=== PATIENT | male | born 1955 | race Caucasian/White ===

== ENCOUNTER 2018-03-02 21:27 | Outpatient (REF) | payer BC, SELFPAY ==
[2018-03-02 21:54] LABS: Anion Gap 6.4 mmol/L (3-11); BUN 25 mg/dL (7-18); CO2 30.6 mmol/L (21.0-32.0); CREATININE 1.15 mg/dL (0.70-1.30); Calcium 8.6 mg/dL (8.5-10.1); Chloride 105 mmol/L (98-107); Cholesterol 181 mg/dL (50-200); Glucose 90 mg/dL (70-100); HDL Cholesterol 46 mg/dL (40-60); LDL CHOLESTEROL 120 mg/dL (<100); Potassium 4.2 mmol/L (3.5-5.1); Sodium 142 mmol/L (136-145); Triglyceride 112 mg/dL (30-150)
== END 2018-03-02 21:47 ==
LOC: NCHCN 21:27
PROVIDERS: PCP Family Medicine; Visit Provider Family Medicine
DX: Z00.00 Encounter for general adult medical examination without abnormal findings (principal); Z13.220 Encounter for screening for lipoid disorders; Z13.228 Encounter for screening for other metabolic disorders
CPT/HCPCS: 80048; 80061; 83721

== ENCOUNTER 2019-03-13 10:45 | Outpatient (REF) | payer MEDICARE, BC, SELFPAY ==
[2019-03-13 23:17] LABS: Anion Gap 9.3 mmol/L (3-11); BUN 16 mg/dL (7-18); CO2 26.7 mmol/L (21.0-32.0); CREATININE 1.06 mg/dL (0.70-1.30); Calcium 8.6 mg/dL (8.5-10.1); Calculated LDL 112 mg/dL; Chloride 106 mmol/L (98-107); Cholesterol 172 mg/dL (<200); Glucose 89 mg/dL (74-106); HDL Cholesterol 42 mg/dL (40-60); Potassium 4.5 mmol/L (3.5-5.1); Sodium 142 mmol/L (136-145); Triglyceride 91 mg/dL (<150)
== END 2019-03-13 11:05 ==
LOC: NCHCN 10:45
PROVIDERS: PCP Family Medicine; Visit Provider Family Medicine
DX: Z00.00 Encounter for general adult medical examination without abnormal findings (principal); Z13.220 Encounter for screening for lipoid disorders; Z13.228 Encounter for screening for other metabolic disorders
CPT/HCPCS: 80048; 80061

== ENCOUNTER 2022-02-04 11:43 | Outpatient (REF) | payer MEDICARE, BC, SELFPAY ==
[2022-02-04 15:10] LABS: Anion Gap 7.1 mmol/L (3-11); BUN 15 mg/dL (7-18); CO2 29.9 mmol/L (21.0-32.0); CREATININE 1.1 mg/dL (0.70-1.30); Calcium 8.8 mg/dL (8.5-10.1); Calculated LDL 125 mg/dL (<100); Chloride 105 mmol/L (98-107); Cholesterol 191 mg/dL (<200); Estimated GFR 73.12 (mL/min/1.73m2); Glucose 98 mg/dL (74-106); HDL Cholesterol 52 mg/dL (40-60); Potassium 4.3 mmol/L (3.5-5.1); Sodium 142 mmol/L (136-145); Triglyceride 74 mg/dL (<150)
[2022-02-07 09:35] LABS: PSA, Screening 0.6 ng/mL (<=4.5)
== END 2022-02-04 11:44 | disposition home or self-care (01) ==
LOC: NCHCN 11:43
PROVIDERS: PCP Family Medicine; Visit Provider Family Medicine
DX: Z13.6 Encounter for screening for cardiovascular disorders (principal); Z12.5 Encounter for screening for malignant neoplasm of prostate; Z00.00 Encounter for general adult medical examination without abnormal findings
CPT/HCPCS: 80048; 80061; 84153

== ENCOUNTER 2023-04-18 13:54 | Outpatient (REF) | payer MEDICARE, BC, SELFPAY ==
--- OUTSIDE RECORDS SUMMARY | 2023-04-18 13:56 | XMS_ITS | CCD ---
Author Name Unknown Address [address] [place] [address] [id number] Organization Unknown Address [address] [place] [address] [id number] Care Team Providers Care Lifestyle Coordinator Name Role Phone BISI GRAY MD Attending Physician [phone] Vital Signs Unknown or Not Available. Allergies Allergy Code Allergy Type Reaction Status ASA (aspirin) 1191 Drug allergy Active Procedures Unknown or Not Available. History of Immunizations Unknown or Not Available. Problems Unknown or Not Available. Results Unknown or Not Available. Active Medications Unknown or Not Available. Medications Administered During Visit Unknown or Not Available. Encounters Encounter Diagnosis Diagnosis Code Start Date Pain in left ankle and joints of left foot M2557 2 10/09/2020 Social History Smoking Status Code Start Date End Date Never smoker [id number] Patient Decision Aids Unknown or Not Available. Discharge Instructions You were admitted to [facility] 01 on 10/09/2020 09:41 with a principal diagnosis of Pain in left ankle and joints of left foot You were discharged from [facility] on 10/16/2020 12:04 Should you have any questions prior to discharge, please contact a member of your healthcare team. If you have left the hospital and have any questions, please contact your primary care physician. Chief Complaint and Reason For Visit Unknown or Not Available. Function Status Unknown or Not Available. Plan of Care Unknown or Not Available. Referral/Transition of Care Unknown or Not Available.
[2023-04-18 14:53] LABS: Anion Gap 8.7 mmol/L (3-11); BUN 18 mg/dL (7-18); CO2 27.3 mmol/L (21.0-32.0); CREATININE 1.1 mg/dL (0.70-1.30); Calcium 8.6 mg/dL (8.5-10.1); Calculated LDL 107 mg/dL (<100); Chloride 106 mmol/L (98-107); Cholesterol 176 mg/dL (<200); Estimated GFR 72.67 (mL/min/1.73m2); Glucose 104 mg/dL (74-106); HDL Cholesterol 49 mg/dL (40-60); Potassium 4.3 mmol/L (3.5-5.1); Sodium 142 mmol/L (136-145); Triglyceride 100 mg/dL (<150)
[2023-04-18 23:13] LABS: PSA, Screening 0.6 ng/mL (<=4.5)
== END 2023-04-18 13:55 | disposition home or self-care (01) ==
LOC: NCHCN 13:54
PROVIDERS: PCP Family Medicine; Referring Provider Family Medicine; Visit Provider Family Medicine
DX: Z12.5 Encounter for screening for malignant neoplasm of prostate (principal); Z13.220 Encounter for screening for lipoid disorders
CPT/HCPCS: 80048; 80061; 84153

== ENCOUNTER 2023-05-16 13:43 | Outpatient (REF) | payer MEDICARE, BC, SELFPAY ==
[2023-05-16 21:12] LABS: Abs Immature Grans 0.02 10^3/uL (0.0-0.06); Absolute Basophil Count 0.07 10^3/uL (0.0-0.2); Absolute Eosinophil Count 0.39 10^3/uL (0.0-0.7); Absolute Lymphocyte Count 1.66 10^3/uL (1.2-3.4); Absolute Monocyte Count 0.81 10^3/uL (0.1-0.8); Absolute Neutrophil Count 4.12 10^3/uL (1.2-6.7); Eosinophils % 5.5; HGB 17.6 g/dL (13.5-17.5); Immature Grans % 0.3; Lymphocytes % 23.5; MCHC 33.2 % (32.0-36.0); MCV 90 fL (80-95); MPV 9.7 fL (8.0-11.0); Monocytes % 11.5; Neutrophils % 58.2; Platelet Count 271 10^3/uL (130-400); RBC 5.86 10^6/uL (4.36-5.78); RDW-SD 43.4 fL; WBC 7.07 10^3/uL (4.4-10.8)
[2023-05-16 21:48] LABS: TSH (W/Ref FT4) 5.07 uIU/mL (0.36-3.74); Vitamin B12 472 pg/mL (193-986)
[2023-05-16 22:48] LABS: FREE T4 0.93 ng/dL (0.76-1.46)
== END 2023-05-16 13:44 | disposition home or self-care (01) ==
LOC: NCHCN 13:43
PROVIDERS: PCP Family Medicine; Visit Provider Family Medicine
DX: G60.9 Hereditary and idiopathic neuropathy, unspecified (principal)
CPT/HCPCS: 82607; 84439; 84443; 85025

== ENCOUNTER 2024-05-10 12:42 | Outpatient (REF) | payer MEDICARE, BC, SELFPAY ==
[2024-05-10 14:42] LABS: Anion Gap 6.6 mmol/L (3-11); BUN 18 mg/dL (7-18); CO2 29.4 mmol/L (21.0-32.0); CREATININE 1.2 mg/dL (0.70-1.30); Calcium 9.1 mg/dL (8.5-10.1); Calculated LDL 118 mg/dL (<100); Chloride 107 mmol/L (98-107); Cholesterol 192 mg/dL (<200); Estimated GFR 65.06 (mL/min/1.73m2); Glucose 94 mg/dL (74-106); HDL Cholesterol 57 mg/dL (>or=40); Potassium 4.3 mmol/L (3.5-5.1); Sodium 143 mmol/L (136-145); Triglyceride 86 mg/dL (<150)
[2024-05-10 22:24] LABS: PSA, Screening 0.6 ng/mL (<=6.5)
== END 2024-05-10 12:43 | disposition home or self-care (01) ==
LOC: NCHCN 12:42
PROVIDERS: PCP Family Medicine; Visit Provider Family Medicine
DX: Z13.220 Encounter for screening for lipoid disorders (principal); Z12.5 Encounter for screening for malignant neoplasm of prostate
CPT/HCPCS: 80048; 80061; 84153